=== PATIENT | female | born 1940 | race Caucasian/White ===

== ENCOUNTER → 2017-10-03 | Outpatient (CLI) | payer MEDICARE | END | disposition home or self-care (01) | LOC: MAMMO 14:36 | DX: Z12.31 Encounter for screening mammogram for malignant neoplasm of breast (principal) ==

== ENCOUNTER → 2019-05-03 | Day surgery (SDC) | payer MEDICARE ==
[~2019-05-03] VITALS: Ht 160 cm; Wt 83.9 kg
[~2019-05-03] MED LIST: ACID REDUCER75 MG PO; CLARITIN10 MG PO; LOSARTAN POTASS50 M1 PO; NEXIUM40 MG PO; STOOL SOFTENER100 M3 PO; Synthroid,Lev100 MCG PO
--- NOTE | ~2019-05-03 | PROC NOTE ---
[place], [place] PROCEDURE NOTE NAME: [facility]EDROZA [facility] [id number] UNIT #: [id number] ROOM: DOCTOR: FRANCIE NICOLE MD BIRTHDATE: [birth year] DOS: 05/03/2019 PROCEDURES: 1. Esophagogastroduodenoscopy and biopsy. 2. Colonoscopy. INDICATIONS: GERD and change in bowel habits. An informed consent was obtained from the patient after indication of procedures, the alternatives and potential complications were explained to her. PROCEDURE MEDICATION: Sedation was administered by Anesthesiology Department. Scope used was Olympus pediatric colonoscope variable stiffness GIF-180, depth of insertion with upper endoscopy was to the descending duodenum with the colonoscopy was to the cecum, which was identified by the usual landmarks, appendiceal orifice, ileocecal valve and triangular fold, in addition to transillumination in the right lower quadrant. FINDINGS: After adequate sedation, the patient was placed in left lateral decubitus position. Upper endoscopy was performed first. The scope was introduced under direct visualization through the upper esophageal sphincter into the esophagus. Esophageal mucosa appeared normal with no ulcerations or strictures. Lower esophageal sphincter was identified at 36 cm from incisors. The stomach was then intubated. Gastric mucosa inspected. Severe gastritis was seen with no discrete ulcers or active bleeding. A JAYLEEN test was performed from the gastric antrum and body. Retroflexed view of the fundus showed a grade 1 sliding hiatal hernia. Pylorus was intubated easily. The duodenal bulb and descending duodenum were within normal range. The scope was then withdrawn after the stomach was decompressed. We then proceeded to colonoscopy. Rectal examination showed a diminished sphincter tone and no external hemorrhoids. The scope was introduced into the rectum, then advanced to the cecum with marked difficulty due to looping in the left colon and the presence of a long and redundant colon. The prep was good. The patient had evidence of pancolonic diverticular disease of moderate degrees more so on the left colon was no evidence of acute diverticulitis or diverticular hemorrhage. The remaining colon mucosa appeared otherwise normal with no evidence of polyps or obstructing lesions. Retroflexed views in the rectum showed grade 1 internal hemorrhoids. The scope was then withdrawn after the rectum was decompressed. The patient tolerated the procedures well. IMPRESSION: 1. Small hiatal hernia. 2. Severe gastritis, JAYLEEN test performed. 3. Moderate pancolonic diverticular disease. 4. Internal hemorrhoids. 5. Normal colon mucosa, otherwise no polyp seen. PLAN: We will review the JAYLEEN test results, treat the patient accordingly. The patient was advised to follow a high fiber diet and use fiber supplements daily. [place], [place] PROCEDURE NOTE NAME: VIELKA PEDROZA UNIT #: [id number] ROOM: DOCTOR: OCREY MALDONADO,FRANCIE BIRTHDATE: [birth year] Repeat screening colonoscopy is advised in 10 years. FRANCIE NICOLE MD CM:PROCNOTE:PROCEDURE NOTE JUNO NICOLE MD
[2019-05-03 06:30] VITALS: BP 130/61
[2019-05-03 08:13] VITALS: BP 139/59
[2019-05-03 08:28] VITALS: BP 131/65
[2019-05-03 08:40] VITALS: BP 131/65
== END | disposition home or self-care (01) ==
LOC: SDC 04-26 08:00
DX: K59.04 Chronic idiopathic constipation (principal); K64.0 First degree hemorrhoids; K44.9 Diaphragmatic hernia without obstruction or gangrene; K57.30 Diverticulosis of large intestine without perforation or abscess without bleeding; K21.9 Gastro-esophageal reflux disease without esophagitis; E03.9 Hypothyroidism, unspecified; I10 Essential (primary) hypertension; Z79.899 Other long term (current) drug therapy; Z98.890 Other specified postprocedural states; Z88.8 Allergy status to other drugs, medicaments and biological substances; Z98.51 Tubal ligation status

== ENCOUNTER → 2022-01-05 | Outpatient (CLI) | payer MEDICARE | END | disposition home or self-care (01) | LOC: RESCLI 08:21 | PROVIDERS: ATTEND Student in an Organized Health Care Education/Training Program | DX: K59.04 Chronic idiopathic constipation (principal); K21.9 Gastro-esophageal reflux disease without esophagitis; I10 Essential (primary) hypertension; E03.9 Hypothyroidism, unspecified; J30.2 Other seasonal allergic rhinitis; Z88.8 Allergy status to other drugs, medicaments and biological substances; Z79.899 Other long term (current) drug therapy; Z90.49 Acquired absence of other specified parts of digestive tract ==

== ENCOUNTER → 2022-06-23 | Outpatient (CLI) | payer MEDICARE | END | disposition home or self-care (01) | LOC: MAMMO 09:04 | PROVIDERS: ATTEND Physician Assistant | DX: Z12.31 Encounter for screening mammogram for malignant neoplasm of breast (principal) ==

== ENCOUNTER → 2023-12-22 | Outpatient (CLI) | payer MEDICARE | END | disposition home or self-care (01) | LOC: RAD 12-11 09:00 | PROVIDERS: ATTEND Internal Medicine | DX: Z13.820 Encounter for screening for osteoporosis (principal); N95.0 Postmenopausal bleeding; E05.90 Thyrotoxicosis, unspecified without thyrotoxic crisis or storm; Z78.0 Asymptomatic menopausal state ==

== ENCOUNTER 2024-01-05 10:24 | Emergency (ER) | payer MEDICARE ==
[~2024-01-05] VITALS: Ht 160 cm; Wt 83.0 kg
[2024-01-05] MEDS ORDERED: IOHEXOL 300 MG/ML 100 ML VIAL IV ONE (10:55)
[2024-01-05] MEDS ORDERED: SODIUM CHLORIDE 0.9% 1,000 ML IV ONE (10:55)
[2024-01-05 11:44] LABS: BASO % 0.7 % (0.0-1.0); EOS # 0.1 10*3/uL (0.0-0.4); EOS % 0.9 % (1.0-4.0); HEMATOCRIT 41.3 % (37.0-47.0); LYMPH # 1.7 10*3/uL (1.3-4.4); LYMPH % 31.1 % (27.0-41.0); MEAN CELL VOLUME 96.5 fl (81.0-99.0); MEAN CORPUSCULAR HGB 31.1 pg (27.0-31.0); MEAN CORPUSCULAR HGB CONC 32.2 g/dl (33.0-37.0); MEAN PLATELET VOLUME 9.8 fl (9.6-12.3); MONO # 0.5 10*3/uL (0.1-1.0); MONO % 8.9 % (3.0-9.0); NEUT # 3.2 10*3/uL (2.3-7.9); PLATELET COUNT AUTOMATED 255 10*3/uL (130-400); RED BLOOD COUNT 4.28 10*6/uL (4.10-5.10); RED CELL DISTRI WIDTH 12.8 % (0-14.5); WHITE BLOOD COUNT 5.5 10*3/uL (4.8-10.8)
[2024-01-05 12:03] LABS: ALKALINE PHOSPHATASE 76 U/L (46-116); BUN 6 mg/dl (9-23); CHLORIDE 107 mmol/L (98-107); LIPASE 35 U/L (12-53); POTASSIUM 4.2 mmol/L (3.4-5.1); SGPT/ALT 16 U/L (5-49); TOTAL PROTEIN 6.4 gm/dL (6.0-8.0)
[2024-01-05 12:21] LABS: BILIRUBIN Negative (Negative); BLOOD 1+ (Negative); CLARITY Clear (Clear); COLOR Yellow (Yellow); GLUCOSE Negative (Negative); KETONE Negative (Negative); LEUKO ESTERASE Negative (Negative); NITRITE Negative (Negative); PH 6.5 (4.5-8.0); SPECIFIC GRAVITY <= 1.005 (1.001-1.030); UROBILINOGEN 0.2 E.U./dl (0.0-1.0)
[2024-01-05 13:04] LABS: BACTERIA 1+
[2024-01-05] MEDS ORDERED: MAGNESIUM CITRATE 296 ML BOT PO ONE (14:15)
== END 2024-01-05 14:30 | disposition home or self-care (01) ==
LOC: ED 10:24
PROVIDERS: Internal Medicine
DX: K59.00 Constipation, unspecified (principal); N28.1 Cyst of kidney, acquired; R11.2 Nausea with vomiting, unspecified; K21.9 Gastro-esophageal reflux disease without esophagitis; I10 Essential (primary) hypertension; E03.9 Hypothyroidism, unspecified; Z88.1 Allergy status to other antibiotic agents; Z98.51 Tubal ligation status; Z90.49 Acquired absence of other specified parts of digestive tract; Z98.890 Other specified postprocedural states